=== PATIENT | male | born 1955 | race Hispanic/Latino ===

== ENCOUNTER → 2021-11-09 | Outpatient (CLI) | payer MEDICARE, BC ==
[~2021-11-09] MED LIST: CARISOPRODOL250 MG PO; HYDROCHLOROTH12.5 M1 PO; NORCO 10-325 T1 EACH PO; ULTRACET TABLE1 EACH PO; ZESTRIL40 MG PO
== END ==
LOC: US 07:34
PROVIDERS: ATTEND Internal Medicine Nephrology
DX: N18.31 Chronic kidney disease, stage 3a (principal)
CPT/HCPCS: 76770; 76857

== ENCOUNTER → 2022-04-06 | Day surgery (SDC) | payer MEDICARE, BC ==
[2022-04-04 10:03] LABS: BASOPHILS # (AUTO) 0.1 (0.0-0.1); BASOPHILS % 0.9 % (0.0-1.0); EOSINOPHILS # (AUTO) 0.2 (0.0-0.4); EOSINOPHILS % 2.5 % (0.0-6.0); HEMATOCRIT 48.6 % (38.2-49.6); HEMOGLOBIN 15.4 g/dL (14.0-18.0); LYMPHOCYTES # (AUTO) 1.5 (1.0-3.2); LYMPHOCYTES % 18.3 % (18.0-39.1); MEAN CORPUSCULAR HEMOGLOBIN 28.6 pg (28-32); MEAN CORPUSCULAR HGB CONC 31.7 g/dL (31-35); MEAN CORPUSCULAR VOLUME 90.3 fL (81-99); MONOCYTES # (AUTO) 0.7 (0.2-0.8); MONOCYTES % 8.1 % (4.4-11.3); NEUTROPHILS # (AUTO) 5.6 (2.1-6.9); NEUTROPHILS % 69.6 % (38.7-80.0); PLATELET COUNT 230 x10e3/uL (140-360); RED BLOOD COUNT 5.38 x10e6/uL (4.3-5.7); RED CELL DISTRIBUTION WIDTH 14.5 % (11.7-14.4)
[2022-04-04 10:24] LABS: INR 1.04; PROTHROMBIN TIME 13.8 seconds (11.9-14.5)
[2022-04-04 10:25] LABS: PARTIAL THROMBOPLASTIN TIME 26.8 seconds (23.8-35.5)
[2022-04-04 10:27] LABS: ALANINE AMINOTRANSFERASE 19 IU/L (0-55); ALBUMIN 3.7 g/dL (3.5-5.0); ALBUMIN/GLOBULIN RATIO 1.1 (0.8-2.0); ALKALINE PHOSPHATASE 83 IU/L (40-150); ANION GAP 15.9 mmol/L (8-16); BLOOD UREA NITROGEN 20 mg/dL (7-26); BUN/CREATININE RATIO 16 (6-25); CALCIUM 9.2 mg/dL (8.4-10.2); CARBON DIOXIDE 22 mmol/L (22-29); CHLORIDE 107 mmol/L (98-107); CHOL/HDL RATIO 7.2 (3.9-4.7); CHOLESTEROL 158 MD/DL (0-199); CREATININE, SERUM 1.29 mg/dL (0.72-1.25); GLUCOSE 133 mg/dL (74-118); HDL CHOLESTEROL 22 MG/DL (40-60); LDL CHOLESTEROL 115 MG/DL (60-130); POTASSIUM 3.9 mmol/L (3.5-5.1); SODIUM 141 mmol/L (136-145); TRIGLYCERIDES 107 MG/DL (0-149)
[2022-04-06] VITALS (18 sets, daily range): BP systolic 100–144; BP diastolic 70–91
[~2022-04-06] VITALS: Ht 167.6 cm; Wt 79.4 kg
[~2022-04-06] MED LIST changes: +ASPIRIN 325 MG TAB ONE; +CLOPIDOGREL BISULFATE 75 MG TAB ONE; +FENTANYL CITRATE/PF 100MCG/2 ML INJ ONE; +HEPARIN SOD (PORCINE) 1000 UNIT/ML 30ML ONE; +HEPARIN SOD/SOD CHLORIDE 2,000 ML ONE; +IOPAMIDOL 370 MG/ML 100 ML INFUS..BTL INJ ONE; +LASIX40 MG PO; +LIDOCAINE HCL 2% LOCAL 20 ML VIAL ONE; +METOPROLOL SUCC25 MG PO; +MIDAZOLAM HCL 2 MG/2 ML VIAL ONE; +NEURONTIN300 MG PO; +NITROGLYCERIN/D5W 200 MCG/ML 250 ML ONE; +SODIUM CHLORIDE 0.9% 1000ML 1,000 ML ONE; +VERAPAMIL HCL 2.5 MG/ML 2 ML VIAL ONE
== END | disposition home or self-care (01) ==
LOC: CATH LAB 07:25
PROVIDERS: ATTEND Internal Medicine Cardiovascular Disease
DX: I25.119 Atherosclerotic heart disease of native coronary artery with unspecified angina pectoris (principal); I25.82 Chronic total occlusion of coronary artery; R94.39 Abnormal result of other cardiovascular function study; I13.0 Hypertensive heart and chronic kidney disease with heart failure and stage 1 through stage 4 chronic kidney disease, or unspecified chronic kidney disease; N18.30 Chronic kidney disease, stage 3 unspecified; I50.20 Unspecified systolic (congestive) heart failure; I87.2 Venous insufficiency (chronic) (peripheral); R60.0 Localized edema; Z71.3 Dietary counseling and surveillance; F17.210 Nicotine dependence, cigarettes, uncomplicated; Z71.6 Tobacco abuse counseling; Z01.812 Encounter for preprocedural laboratory examination; Z20.822 Contact with and (suspected) exposure to COVID-19; Z79.899 Other long term (current) drug therapy; Z95.0 Presence of cardiac pacemaker; Z82.49 Family history of ischemic heart disease and other diseases of the circulatory system
CPT/HCPCS: C9600 ×23; 0223U; 36415; 80053; 80061; 83036; 85025; 85610; 85730; 92920; 92928; 93005; 93458; 99152; 99153; C1725; C1874; C1876; J1644; J2001; J2250; J3010; J7030; Q9967

== ENCOUNTER → 2022-09-15 | Outpatient (CLI) | payer MEDICARE, BC ==
[~2022-09-15] MED LIST changes: -ASPIRIN 325 MG TAB ONE; -CLOPIDOGREL BISULFATE 75 MG TAB ONE; -FENTANYL CITRATE/PF 100MCG/2 ML INJ ONE; -HEPARIN SOD (PORCINE) 1000 UNIT/ML 30ML ONE; -HEPARIN SOD/SOD CHLORIDE 2,000 ML ONE; -LIDOCAINE HCL 2% LOCAL 20 ML VIAL ONE; -MIDAZOLAM HCL 2 MG/2 ML VIAL ONE; -NITROGLYCERIN/D5W 200 MCG/ML 250 ML ONE; -SODIUM CHLORIDE 0.9% 1000ML 1,000 ML ONE; -VERAPAMIL HCL 2.5 MG/ML 2 ML VIAL ONE
[2022-09-15 16:05] LABS: CREATININE, SERUM 1.12 mg/dL (0.72-1.25)
== END ==
LOC: CT 15:22
PROVIDERS: ATTEND Internal Medicine Cardiovascular Disease
DX: R06.02 Shortness of breath (principal)
CPT/HCPCS: 36415; 71260; 82565; 84520; Q9967

== ENCOUNTER → 2024-02-14 | Day surgery (SDC) | payer MEDICARE, BC ==
[2024-02-13 13:41] LABS: BASOPHILS # (AUTO) 0.1 (0.0-0.1); EOSINOPHILS # (AUTO) 0.3 (0.0-0.4); HEMATOCRIT 54.6 % (38.2-49.6); HEMOGLOBIN 17.3 g/dL (14.0-18.0); LYMPHOCYTES # (AUTO) 1.8 (1.0-3.2); LYMPHOCYTES % 19.3 % (18.0-39.1); MEAN CORPUSCULAR HEMOGLOBIN 30.7 pg (28-32); MEAN CORPUSCULAR HGB CONC 31.7 g/dL (31-35); MONOCYTES # (AUTO) 0.6 (0.2-0.8); MONOCYTES % 6.9 % (4.4-11.3); NEUTROPHILS # (AUTO) 6.4 (2.1-6.9); NEUTROPHILS % 69.6 % (38.7-80.0); PLATELET COUNT 202 x10e3/uL (140-360); RED BLOOD COUNT 5.63 x10e6/uL (4.3-5.7); RED CELL DISTRIBUTION WIDTH 14.6 % (11.7-14.4); WHITE BLOOD COUNT 9.12 x10e3/uL (4.8-10.8)
[2024-02-13 13:59] LABS: ANION GAP 16.2 mmol/L (8-16); CALCIUM 10.1 mg/dL (8.4-10.2); CREATININE, SERUM 1.28 mg/dL (0.72-1.25)
[2024-02-13 14:01] LABS: POTASSIUM 5.2 mmol/L (3.5-5.1)
[~2024-02-14] MED LIST changes: +ACETAMINOPHEN 1000 MG/100 ML 100 ML IV ONE; +ALLOPURINOL100 MG PO; +ASPIRIN81 MG PO; +ATORVASTATIN CA20 MG PO; +DEXAMETHASONE SOD PHOS INJ 4 MG/ML SDV ONE; +ETOMIDATE 40 MG/ 20ML VIAL IV ONE; +FENTANYL CITRATE/PF 100MCG/2 ML INJ ONE; -IOPAMIDOL 370 MG/ML 100 ML INFUS..BTL INJ ONE; +LIDOCAINE HCL 2% LOCAL INJ 5 ML SDV VIAL INJ ONE; +ONDANSETRON HCL INJ 2MG/ML 2ML 2 MG/ML VIAL ONE; +POTASSIUM CHLO10 ME1 PO; +PROPOFOL IV EMULSION 10 MG/ML 20 ML VIAL ONE
[2024-02-14] MEDS: CEFTRIAXONE 1 GM VIAL ONE (05:58)
[2024-02-14] MEDS: LACTATED RINGER'S 1,000 ML ONE (05:58)
[2024-02-14 08:35] VITALS: BP 98/70; PULSE 50; RESP 15; O2SAT 97
== END | disposition home or self-care (01) ==
LOC: OR 06:05
PROVIDERS: ATTEND Urology
DX: N35.819 Other urethral stricture, male, unspecified site (principal); C61 Malignant neoplasm of prostate; N30.40 Irradiation cystitis without hematuria; I13.0 Hypertensive heart and chronic kidney disease with heart failure and stage 1 through stage 4 chronic kidney disease, or unspecified chronic kidney disease; N18.30 Chronic kidney disease, stage 3 unspecified; I50.20 Unspecified systolic (congestive) heart failure; Z88.6 Allergy status to analgesic agent; Z01.810 Encounter for preprocedural cardiovascular examination; Z01.812 Encounter for preprocedural laboratory examination; Z01.818 Encounter for other preprocedural examination; Z79.82 Long term (current) use of aspirin; Z79.899 Other long term (current) drug therapy; Z95.0 Presence of cardiac pacemaker; Z87.891 Personal history of nicotine dependence
CPT/HCPCS: 36415; 52281; 71046; 74420; 80048; 85025; 93005; J0131; J0696; J1100; J2003; J2405; J2704; J3010; J7121

== ENCOUNTER 2024-05-15 18:38 | Inpatient (IN) | payer MEDICARE, BC ==
[~2024-05-15] VITALS: Ht 170.2 cm; Wt 75.1 kg
[~2024-05-15 18:38] MED LIST changes: -ACETAMINOPHEN 1000 MG/100 ML 100 ML IV ONE; -DEXAMETHASONE SOD PHOS INJ 4 MG/ML SDV ONE; -ETOMIDATE 40 MG/ 20ML VIAL IV ONE; -FENTANYL CITRATE/PF 100MCG/2 ML INJ ONE; -LIDOCAINE HCL 2% LOCAL INJ 5 ML SDV VIAL INJ ONE; -ONDANSETRON HCL INJ 2MG/ML 2ML 2 MG/ML VIAL ONE; -PROPOFOL IV EMULSION 10 MG/ML 20 ML VIAL ONE
[2024-05-15 20:23] VITALS: TEMP 98.7
[2024-05-15 20:41] LABS: BASOPHILS # (AUTO) 0.1 (0.0-0.1); BASOPHILS % 1.1 % (0.0-1.0); EOSINOPHILS # (AUTO) 0.9 (0.0-0.4); EOSINOPHILS % 9.2 % (0.0-6.0); HEMATOCRIT 47.2 % (38.2-49.6); HEMOGLOBIN 15.7 g/dL (14.0-18.0); LYMPHOCYTES # (AUTO) 1.5 (1.0-3.2); LYMPHOCYTES % 15.5 % (18.0-39.1); MEAN CORPUSCULAR HEMOGLOBIN 29.6 pg (28-32); MEAN CORPUSCULAR HGB CONC 33.3 g/dL (31-35); MEAN CORPUSCULAR VOLUME 88.9 fL (81-99); MONOCYTES # (AUTO) 0.9 (0.2-0.8); MONOCYTES % 8.9 % (4.4-11.3); NEUTROPHILS # (AUTO) 6.4 (2.1-6.9); PLATELET COUNT 267 x10e3/uL (140-360); RED BLOOD COUNT 5.31 x10e6/uL (4.3-5.7); RED CELL DISTRIBUTION WIDTH 14.5 % (11.7-14.4); WHITE BLOOD COUNT 9.78 x10e3/uL (4.8-10.8)
[2024-05-15 21:09] LABS: ALBUMIN 3.4 g/dL (3.5-5.0); ANION GAP 15.8 mmol/L (8-16); BILIRUBIN,TOTAL 1.6 mg/dL (0.2-1.2); CALCIUM 8.8 mg/dL (8.4-10.2); CREATININE, SERUM 1.27 mg/dL (0.72-1.25); POTASSIUM 3.8 mmol/L (3.5-5.1); TOTAL PROTEIN 6.9 g/dL (6.5-8.1)
[2024-05-15 21:15] LABS: TROPONIN I 0.024 ng/mL (0-0.300)
[2024-05-15 21:42] LABS: CORONAVIRUS COVID-19 AG NEGATIVE (NEGATIVE); INFLUENZA A AG NEGATIVE (NEGATIVE); INFLUENZA B AG NEGATIVE (NEGATIVE)
[2024-05-15] MEDS ORDERED: Morphine 4mg INJECTION 4 MG/ML INJ IV PRN (22:45)
[2024-05-15] MEDS ORDERED: ONDANSETRON HCL INJ 2MG/ML 2ML 2 MG/ML VIAL IV PRN (22:45)
[2024-05-15 23:00] VITALS: PULSE 55; RESP 17
[2024-05-15] MEDS: FUROSEMIDE INJ 10 MG/ML 4 ML VIAL IV SCH (23:41)
[2024-05-16] VITALS (9 sets, daily range): BP systolic 98–122; BP diastolic 69–93; PULSE 54–66; RESP 16–19; TEMP 97.4–97.9; O2SAT 95–100
[2024-05-16] MEDS ORDERED: KLOR-CON 1010 MEQ PO (00:44)
[2024-05-16 06:41] LABS: BASOPHILS # (AUTO) 0.1 (0.0-0.1); BASOPHILS % 1.3 % (0.0-1.0); EOSINOPHILS # (AUTO) 0.7 (0.0-0.4); HEMATOCRIT 45.8 % (38.2-49.6); HEMOGLOBIN 15.1 g/dL (14.0-18.0); LYMPHOCYTES # (AUTO) 1.2 (1.0-3.2); LYMPHOCYTES % 13.4 % (18.0-39.1); MEAN CORPUSCULAR HEMOGLOBIN 29.7 pg (28-32); MONOCYTES # (AUTO) 0.7 (0.2-0.8); MONOCYTES % 8.4 % (4.4-11.3); NEUTROPHILS % 68.4 % (38.7-80.0); PLATELET COUNT 241 x10e3/uL (140-360); RED BLOOD COUNT 5.09 x10e6/uL (4.3-5.7); RED CELL DISTRIBUTION WIDTH 14.4 % (11.7-14.4); WHITE BLOOD COUNT 8.79 x10e3/uL (4.8-10.8)
[2024-05-16 06:52] LABS: ALBUMIN 3.1 g/dL (3.5-5.0); ANION GAP 15.8 mmol/L (8-16); BILIRUBIN,TOTAL 1.7 mg/dL (0.2-1.2); CALCIUM 8.7 mg/dL (8.4-10.2); CREATININE, SERUM 1.07 mg/dL (0.72-1.25); POTASSIUM 3.8 mmol/L (3.5-5.1); TOTAL PROTEIN 6.2 g/dL (6.5-8.1)
[2024-05-16 07:12] LABS: TROPONIN I 0.034 ng/mL (0-0.300)
[2024-05-16] MEDS: POTASSIUM CHLORIDE 10MEQ EA PO SCH (10:57)
[2024-05-16 14:07] LABS: TROPONIN I 0.015 ng/mL (0-0.300)
[2024-05-16] MEDS: ATORVASTATIN 20 MG TAB PO SCH (21:05)
[2024-05-17] VITALS: BP 101/76; PULSE 66; RESP 19; TEMP 97.7; O2SAT 99
[2024-05-17 04:49] VITALS: BP 114/79; PULSE 59; RESP 18; TEMP 97.2; O2SAT 97
[2024-05-17 05:27] LABS: BASOPHILS # (AUTO) 0.1 (0.0-0.1); BASOPHILS % 1.1 % (0.0-1.0); EOSINOPHILS % 10.9 % (0.0-6.0); HEMATOCRIT 48.6 % (38.2-49.6); HEMOGLOBIN 16.3 g/dL (14.0-18.0); LYMPHOCYTES # (AUTO) 1.2 (1.0-3.2); LYMPHOCYTES % 12.5 % (18.0-39.1); MEAN CORPUSCULAR HEMOGLOBIN 29.7 pg (28-32); MEAN CORPUSCULAR HGB CONC 33.5 g/dL (31-35); MEAN CORPUSCULAR VOLUME 88.5 fL (81-99); MONOCYTES # (AUTO) 0.9 (0.2-0.8); MONOCYTES % 9.4 % (4.4-11.3); NEUTROPHILS # (AUTO) 6.2 (2.1-6.9); NEUTROPHILS % 65.8 % (38.7-80.0); PLATELET COUNT 267 x10e3/uL (140-360); RED BLOOD COUNT 5.49 x10e6/uL (4.3-5.7); RED CELL DISTRIBUTION WIDTH 14.3 % (11.7-14.4); WHITE BLOOD COUNT 9.36 x10e3/uL (4.8-10.8)
[2024-05-17 05:42] LABS: ANION GAP 14.9 mmol/L (8-16); CREATININE, SERUM 1.1 mg/dL (0.72-1.25); POTASSIUM 3.9 mmol/L (3.5-5.1)
[2024-05-17 08:24] VITALS: BP 105/68; PULSE 56; RESP 18; TEMP 97.8; O2SAT 97
[2024-05-17] MEDS: SACUBITRIL/VALSARTAN 24MG/26MG 1 EA TAB PO SCH (08:35)
[2024-05-17] MEDS: ASPIRIN 81 MG CHEW TAB PO SCH (08:36)
[2024-05-17] MEDS: ALLOPURINOL 100 MG TAB PO SCH (08:37)
[2024-05-17] MEDS: METOPROLOL SUCCINATE 25 MG TAB XL PO SCH (08:37)
[2024-05-17 12:15] VITALS: BP 99/70; PULSE 55; RESP 20; TEMP 98.2; O2SAT 96
[2024-05-17 16:29] VITALS: BP 102/72; PULSE 61; RESP 19; TEMP 98.1; O2SAT 96
[2024-05-17] MEDS: FUROSEMIDE 40 MG TAB PO SCH (17:05)
[2024-05-17 20:00] VITALS: BP 112/70; PULSE 62; RESP 18; TEMP 98; O2SAT 95
[2024-05-18] VITALS: BP 111/77; PULSE 65; RESP 18; TEMP 98; O2SAT 96
[2024-05-18 04:00] VITALS: BP 130/69; PULSE 60; RESP 18; TEMP 98.2; O2SAT 97
[2024-05-18 08:00] VITALS: BP 130/69; PULSE 60; RESP 18; TEMP 98.2; O2SAT 97
[2024-05-18 08:35] VITALS: BP 101/77; PULSE 69; RESP 18; TEMP 97.8; O2SAT 97
[2024-05-18 08:38] VITALS: BP 101/77; PULSE 69
[2024-05-18] MEDS: HYDROCODONE/APAP 10MG-325MG TAB PO PRN (11:04)
== END 2024-05-18 11:30 | disposition home or self-care (01) | DRG 291 ==
LOC: ER 18:49 → ERHOLD 22:39 → MED/SURG2 05-16 00:07
PROVIDERS: ADMIT Internal Medicine; ATTEND Internal Medicine
DX: I11.0 Hypertensive heart disease with heart failure (principal); I50.23 Acute on chronic systolic (congestive) heart failure; I25.5 Ischemic cardiomyopathy; E78.5 Hyperlipidemia, unspecified; R06.00 Dyspnea, unspecified; G93.32 Myalgic encephalomyelitis/chronic fatigue syndrome; M10.9 Gout, unspecified; M19.90 Unspecified osteoarthritis, unspecified site; Z11.52 Encounter for screening for COVID-19; Z79.82 Long term (current) use of aspirin; Z95.0 Presence of cardiac pacemaker; Z90.49 Acquired absence of other specified parts of digestive tract; Z85.46 Personal history of malignant neoplasm of prostate; Z90.79 Acquired absence of other genital organ(s); Z88.6 Allergy status to analgesic agent; Z87.891 Personal history of nicotine dependence
CPT/HCPCS: 36415; 71045; 80048; 80053; 82550; 83690; 83880; 84484; 85025; 93005; 93306; 94799; 99284; J1940

== ENCOUNTER → 2024-06-06 | Outpatient (REF) | payer MEDICARE, BC ==
[~2024-06-06] MED LIST changes: +IOPAMIDOL 370 MG/ML 100 ML INFUS..BTL INJ ONE; +KLOR-CON 1010 MEQ PO; +NITROGLYCERIN 0.4 MG SUBL ONE; +SODIUM CHLORIDE 0.9% 100 ML ONE
[2024-06-06 08:48] LABS: CREATININE, SERUM 1.24 mg/dL (0.72-1.25)
== END ==
LOC: CT 07:33
PROVIDERS: ATTEND Internal Medicine Cardiovascular Disease
DX: I50.20 Unspecified systolic (congestive) heart failure (principal)
CPT/HCPCS: 36415; 75574; 82565; 84520; J7050; Q9967

== ENCOUNTER 2024-10-03 07:52 | Observation (INO) | payer MEDICARE, BC ==
[2024-09-30 12:02] LABS: BASOPHILS % 1.0 % (0.0-1.0); EOSINOPHILS % 2.3 % (0.0-6.0); LYMPHOCYTES % 15.4 % (18.0-39.1); MONOCYTES % 7.9 % (4.4-11.3); NEUTROPHILS % 73.1 % (38.7-80.0); RED CELL DISTRIBUTION WIDTH 14.3 % (11.7-14.4)
[2024-09-30 12:30] LABS: EST GLOMERULAR FILTRATION RATE 57.0 ML/MIN (>=60)
[2024-09-30 12:31] LABS: INR 0.91
[2024-10-03] VITALS (16 sets, daily range): BP systolic 109–129; BP diastolic 62–92; PULSE 58–66; RESP 11–20; TEMP 97–97.7; O2SAT 98–100
[~2024-10-03] VITALS: Ht 167.6 cm; Wt 69.4 kg
[~2024-10-03 07:52] MED LIST changes: +CLOPIDOGREL75 MG PO; +ENTRESTO 24 MG1 EACH PO; -IOPAMIDOL 370 MG/ML 100 ML INFUS..BTL INJ ONE; +JARDIANCE10 MG; -NITROGLYCERIN 0.4 MG SUBL ONE; +NITROGLYCERIN0.4 MG SL; +POTASSIUM CHLO20 ME1 PO; -SODIUM CHLORIDE 0.9% 100 ML ONE; +SPIRONOLACTONE25 MG PO
[2024-10-03] MEDS ORDERED: SODIUM CHLORIDE FLUSH 10 ML SYR INJ PRN (12:45)
[2024-10-03] MEDS: GENTAMICIN SULFATE 40 MG/ML 2 ML VIAL ONE (13:53)
[2024-10-03] MEDS: Vancomycin IV 1 GM VIAL ONE (13:54)
[2024-10-03] MEDS: SODIUM CHLORIDE 0.9% 1000ML 2,000 ML ONE (13:54)
[2024-10-03] MEDS: LIDOCAINE HCL 2% LOCAL 20 ML VIAL ONE (13:54)
[2024-10-03] MEDS: SODIUM CHLORIDE 0.9% 500ML 500 ML ONE (13:54)
[2024-10-03] MEDS: SODIUM BICARBONATE 8.4% SYRING 50 ML ONE (13:54)
[2024-10-03] MEDS: SODIUM CHLORIDE 0.9% 250ML 250 ML ONE (13:54)
[2024-10-03] MEDS: IOPAMIDOL 370 MG/ML 100 ML INFUS..BTL INJ ONE (13:55)
[2024-10-03] MEDS: FENTANYL CITRATE/PF 100MCG/2 ML INJ ONE (13:55)
[2024-10-03] MEDS: IOPAMIDOL 610MG/1ML 300 MG/ML VIAL IV ONE (13:55)
[2024-10-03] MEDS: MIDAZOLAM HCL 2 MG/2 ML VIAL ONE ×2 (13:56)
[2024-10-03] MEDS ORDERED: NITROGLYCERIN 0.4 MG SUBL SL PRN (14:00)
[2024-10-03] MEDS: SACUBITRIL/VALSARTAN 24MG/26MG 1 EA TAB PO SCH (17:56)
[2024-10-03] MEDS: POTASSIUM CHLORIDE 20 MEQ TAB CR PO SCH (17:56)
[2024-10-03] MEDS: ATORVASTATIN 20 MG TAB PO SCH (22:27)
[2024-10-04] VITALS: BP 109/76; PULSE 60; RESP 18; TEMP 98.1; O2SAT 100
[2024-10-04] MEDS: HYDROCODONE/APAP 10MG-325MG TAB PO PRN (00:37)
[2024-10-04] MEDS ORDERED: MELATONIN 3 MG TAB PO PRN (07:15)
[2024-10-04] MEDS ORDERED: ACETAMINOPHEN 325 MG TAB PO PRN (07:15)
[2024-10-04] MEDS ORDERED: DOCUSATE SODIUM 100 MG CAP PO PRN (07:15)
[2024-10-04] MEDS ORDERED: ALBUTEROL/IPRATROPIUM 3 ML NEB NEB PRN (07:15)
[2024-10-04] MEDS ORDERED: METOPROLOL TARTRATE INJ 1 MG/ML VIAL IV PRN (07:15)
[2024-10-04 07:54] VITALS: BP 124/80; PULSE 61; RESP 18; TEMP 97.6; O2SAT 100
[2024-10-04] MEDS: EMPAGLIFLOZIN 10 MG TABLET PO SCH (09:19)
[2024-10-04] MEDS: ALLOPURINOL 100 MG TAB PO SCH (09:19)
[2024-10-04] MEDS: FUROSEMIDE 40 MG TAB PO SCH (09:19)
[2024-10-04] MEDS: SPIRONOLACTONE 25 MG TAB PO SCH (09:19)
[2024-10-04] MEDS: CLOPIDOGREL BISULFATE 75 MG TAB PO SCH (09:19)
[2024-10-04] MEDS: METOPROLOL SUCCINATE 25 MG TAB XL PO SCH (09:20)
[2024-10-04 09:25] VITALS: BP 124/80; PULSE 61; RESP 18; TEMP 97.6; O2SAT 100
[2024-10-04 11:22] VITALS: BP 113/80; PULSE 58; RESP 18; TEMP 97.7; O2SAT 100
== END 2024-10-04 12:17 | disposition home or self-care (01) ==
LOC: CATH LAB 07:52 → CATH LAB V 12:43 → MED/SURG2 15:35
PROVIDERS: ADMIT Internal Medicine Clinical Cardiac Electrophysiology; ATTEND Internal Medicine Clinical Cardiac Electrophysiology
DX: I42.8 Other cardiomyopathies (principal); I11.0 Hypertensive heart disease with heart failure; I50.42 Chronic combined systolic (congestive) and diastolic (congestive) heart failure; I44.2 Atrioventricular block, complete; I25.10 Atherosclerotic heart disease of native coronary artery without angina pectoris; Z95.5 Presence of coronary angioplasty implant and graft; E78.5 Hyperlipidemia, unspecified; M10.9 Gout, unspecified
CPT/HCPCS: 33225; 33249; 36415 ×2; 71045; 71046; 75820; 80048; 82948; 85025; 85610; C1763; C1769 ×2; C1777; C1882; C1898; C1900; G0378 ×2; J1580; J2003; J2250; J3010; J3373; J7030; J7040; J7050; Q9967 ×2; 33214; 33217; 99152; 99153